=== PATIENT | female | born 1995 | race Hispanic/Latino ===

== ENCOUNTER 2018-04-26 22:35 | Emergency (ER) | payer SELFPAY ==
[~2018-04-26] VITALS: Ht 160 cm; Wt 88.2 kg
[2018-04-26] MEDS ORDERED: IBUPROFEN400 MG PO (23:43)
[2018-04-26 23:44] VITALS: BP 118/70
== END 2018-04-26 23:49 | disposition home or self-care (01) ==
LOC: FSED 22:35
DX: N92.0 Excessive and frequent menstruation with regular cycle (principal); R30.0 Dysuria; R10.9 Unspecified abdominal pain
CPT/HCPCS: 81003; 81025; 99282